=== PATIENT | female | born 1940 | race Caucasian/White ===

== ENCOUNTER 2017-09-04 12:48 | Emergency (ER) | payer OTHER ==
[~2017-09-04] VITALS: Ht 167.6 cm; Wt 81.7 kg
[~2017-09-04 12:48] MED LIST: ENAL10 PO; FLUO20 PO; FURO20 PO
[2017-09-04] MEDS ORDERED: SIMV40 PO (13:04)
== END 2017-09-04 16:33 | disposition home or self-care (01) ==
LOC: ER 12:48
DX: S52.502A Unspecified fracture of the lower end of left radius, initial encounter for closed fracture (principal); W10.9XXA Fall (on) (from) unspecified stairs and steps, initial encounter; Z79.899 Other long term (current) drug therapy; F17.210 Nicotine dependence, cigarettes, uncomplicated
CPT/HCPCS: 25605; 73100; 96374; 99152; 99284; J2405; J7030

== ENCOUNTER → 2018-09-09 | Outpatient (CLI) | payer OTHER ==
[~2018-09-09] MED LIST changes: +SIMV40 PO
== END ==
LOC: PLD 09:58 → LAB SHORT 09:58
DX: D48.5 Neoplasm of uncertain behavior of skin (principal); L82.1 Other seborrheic keratosis
CPT/HCPCS: 88305

== ENCOUNTER → 2021-02-15 | Outpatient (CLI) | payer OTHER | END | disposition home or self-care (01) | LOC: LAB SHORT 11:13 | DX: L82.1 Other seborrheic keratosis (principal) | CPT/HCPCS: 88305 ==

== ENCOUNTER 2023-01-31 13:35 | Emergency (ER) | payer OTHER ==
[~2023-01-31] VITALS: Ht 167.6 cm; Wt 76.2 kg
[2023-01-31 13:39] VITALS: BP 168/90
[2023-01-31] MEDS ORDERED: AMLODIPINE BESYL5 MG PO (13:42)
[2023-01-31] MEDS ORDERED: KLOR-CON 1010 ME9 PO (13:42)
[2023-01-31] MEDS ORDERED: TRAZ50 PO (13:42)
== END 2023-01-31 14:54 | disposition home or self-care (01) ==
LOC: ER 13:35
DX: R25.2 Cramp and spasm (principal); Z79.899 Other long term (current) drug therapy; F17.210 Nicotine dependence, cigarettes, uncomplicated
CPT/HCPCS: 93971; 99283-25